=== PATIENT | male | born 1950 | race Caucasian/White ===

== ENCOUNTER 2024-12-02 13:48 | Inpatient (IN) | payer MEDICARE ==
[~2024-12-02] VITALS: Ht 172.7 cm; Wt 100.4 kg
[2024-12-02] MEDS ORDERED: HYDROmorphone HCl/Pf 1MG SYR IV ONE (15:10)
[2024-12-02] MEDS ORDERED: Ondansetron HCl 2 MG / ML 2ML Vial IV ONE (15:10)
[2024-12-02] MEDS ORDERED: HYDROmorphone HCl/Pf 1MG SYR IV PRN (16:40)
[2024-12-02] MEDS ORDERED: OxyCODONE HCL 5 MG TAB PO PRN (16:45)
[2024-12-02] MEDS ORDERED: Acetaminophen 325 MG TABLET PO PRN (16:45)
[2024-12-02] MEDS ORDERED: Ondansetron 4 MG SoluTab MM PRN (16:50)
[2024-12-02] MEDS ORDERED: HydrALAZINE HCl 20 MG / ML 1ML Vial IV PRN (17:05)
[2024-12-02 17:58] VITALS: BP 105/55
[2024-12-02] MEDS ORDERED: Losartan Potassium 50 MG Tab PO SCH (18:00)
[2024-12-02] MEDS ORDERED: VALS80 PO ×2 (18:07→18:10)
[2024-12-02] MEDS ORDERED: VALA500 PO (18:09)
[2024-12-02] MEDS ORDERED: FELODIPINE ER10 M1 PO (18:11)
[2024-12-02] MEDS ORDERED: CENTRUM SILVER1 EAC2 PO (18:12)
[2024-12-02] MEDS ORDERED: VALSARTAN-HCTZ1 EAC7 PO (18:15)
--- NOTE | 2024-12-02 18:41 | NUR ---
TRANSFER TO UNIT PATIENT TRANSFERRED TO UNIT AT APPROX 1745. PATIENT TRANSFERRED TO BED VIA SLIDER SHEET. ALERT AND ORIENTED X4. COMMUNICATES NEEDS EFFECTIVELY. VSS. SBP 100s. MAP >65. EVENING SCHEDULED COZAAR HELD. DENIES CHEST PAIN, PRESSURE. ON ROOM AIR, SATs >90%. L HIP FX - PPP, CAP REFILL <3 SECONDS. REPORTING 5/10 PAIN - MEDICATED PER EMAR. PLAN FOR SURGERY TOMORROW - NPO AT MIDNIGHT. MULTIPLE ABRASIONS TO L ARM - EXUDRY FOAM DRESSINGS AND KENNA WRAP APPLIED. HOME MEDICATIONS VERIFIED. PATIENT CURRENTLY EATING DINNER. CALL LIGHT IN REACH.
[2024-12-02 19:27] VITALS: BP 97/63
[2024-12-02] MEDS ORDERED: Sennosides 8.6 MG Tab PO SCH (21:00)
[2024-12-03] VITALS (15 sets, daily range): BP systolic 103–151; BP diastolic 46–78
--- NOTE | 2024-12-03 04:54 | NUR ---
SHIFT SUMMARY S/P L HIP FX. NO ACUTE CHANGES OVERNIGHT. VSS. NPO. DENIES N/V. LLE EXTERNALLY ROTATED. PT REFUSED REPOSITIONING R/T PAIN. PT REPORTS INCREASED PAIN c TOUCH/MOVEMENT. MEDICATED PER EMAR, LLE MINIMALLY ELEVATED. POLLOCK DRAINING STORM URINE TO GRAVITY. NPO IN ANTICIPATION OF SURGERY LATER TODAY. CALL LIGHTS IN REACH, BED IN LOWEST POSITION, WILL REPORT TO DAY RN.
[2024-12-03 05:29] LABS: BASOPHILS ABSOLUTE AUTO 0.03 K/mm3 (0.00-0.23); BASOPHILS PERCENT AUTO 0 % (0-2); EOSINOPHILS ABSOLUTE AUTO 0.01 K/mm3 (0.00-0.68); EOSINOPHILS PERCENT AUTO 0 % (0-6); Hematocrit 31.8 % (37.0-53.0); Hemoglobin 10.8 g/dL (13.5-17.5); IMMATURE GRAN ABSOLUTE AUTO 0.05 K/mm3 (0.00-0.10); IMMATURE GRAN PERCENT AUTO 1 % (0-1); LYMPHOCYTES ABSOLUTE AUTO 1.61 K/mm3 (0.84-5.20); LYMPHOCYTES PERCENT AUTO 15 % (21-46); MONOCYTES ABSOLUTE AUTO 1.64 K/mm3 (0.16-1.47); MONOCYTES PERCENT AUTO 15 % (4-13); Mean Corpuscular HGB 30.3 pg (26.0-34.0); Mean Corpuscular Volume 89 fL (80-100); Mean Platelet Volume 10.5 fL (9.1-12.4); NEUTROPHILS ABSOLUTE AUTO 7.71 K/mm3 (1.96-9.15); NEUTROPHILS PERCENT AUTO 70 % (41-73); Platelet Count 152 K/mm3 (150-400); RDW Coefficient Variation 13.6 % (11.7-14.2); RDW Standard Deviation 44.7 fL (35.1-46.3); Red Blood Cell Count 3.57 M/mm3 (4.30-5.90); White Blood Cell Count 11.05 K/mm3 (4.00-11.30)
[2024-12-03 06:05] LABS: Bun/Creatinine Ratio 25.9 (12.0-20.0); Calcium, Blood 8.4 mg/dL (8.5-10.1); Creatinine, Blood 1.39 mg/dL (0.60-1.20)
[2024-12-03] MEDS ORDERED: AmLODIPine Besylate 5 MG Tab PO SCH (09:00)
[2024-12-03] MEDS ORDERED: ValACYClovir HCL 500 MG Tab PO SCH (09:00)
[2024-12-03] MEDS ORDERED: Losartan Potassium 50 MG Tab PO SCH (09:00)
--- NOTE | 2024-12-03 10:14 | NUR ---
NOTE: DR. HEARN REQUESTED LAB RESULTS FROM PCP. THIS NURSE CALLED DR. KHAN OFFICE AND REQUESTED LABS TO BE FAXED TO THIS DEPARTMENT. THIS NURSE RECIEVED THE FAX AND NOTIFIED DR. HEARN OF THE RESULTS. NO NEW ORDERS FOR THIS NURSE AT THIS TIME.
[2024-12-03] MEDS ORDERED: C COMPLEX1000 M1 PO (11:13)
[2024-12-03] MEDS ORDERED: VALSARTAN160 MG PO (11:13)
--- NOTE | 2024-12-03 11:52 | NUR ---
NOTE: RECEIVED STAT EKG ORDER. EKG COMPLETED AND IN THE PT'S CHART.
[2024-12-03] MEDS ORDERED: Lactated Ringer's 1,000 ML IV SCH (12:10)
[2024-12-03] MEDS ORDERED: CeFAZolin Sodium 2,000 MG in NS 100 ML IV SCH (12:10)
[2024-12-03] MEDS ORDERED: Tranexamic Acid 100 ML IV SCH (12:15)
[2024-12-03] MEDS ORDERED: CeFAZolin Sodium 2,000 MG VIAL ONE (14:00)
--- NOTE | 2024-12-03 15:20 | NUR ---
PT HAS 18G TO RIGHT AC THAT FLUSHES WELL AND FLOWS TO GRAVITY. PT ALSO HAS 18G TO LEFT FOREARM THAT FLUSHES WELL.
--- NOTE | 2024-12-03 15:29 | NUR ---
PT BROUGHT FROM FLOOR TO DAY SURGERY FOR PROCEDURE W/DR SMITH. History, Chart, Medications and Allergies reviewed before start of procedure. Lungs clear T/O to Auscultation. Patient confirms NPO status and agrees with scheduled surgery. Pre-Op teaching done. Pt verbalizes understanding. PT BELONGINGS LEFT IN PERSONAL ROOM ON SURGICAL FLOOR. PT TOO PAINFUL FOR DEIRDRE HOSE/PAS WELL CHLORHEXADINE WIPE TO HIP, OR TEAM AWARE.
[2024-12-03] MEDS ORDERED: Bupivacaine 0.5% W/EPI 1:200000 SDV 30 ML Vial ONE (16:05)
--- NOTE | 2024-12-03 16:19 | NUR ---
REPORT GIVEN TO ESTUARDO GENAO RN AND DWAIN MARIE RN TO ASSUME CARE OF PT AT THIS TIME.
[2024-12-03] MEDS ORDERED: HYDROmorphone HCl/Pf 1MG SYR ONE (16:33)
[2024-12-03] MEDS ORDERED: Midazolam HCl 1MG / ML 2ML Vial ONE (16:33)
[2024-12-03] MEDS ORDERED: propofoL 20 ML IV ONE (16:33)
[2024-12-03] MEDS ORDERED: Rocuronium Bromide 10 MG/ML 5ML Injection IV ONE ×2 (16:34→17:49)
[2024-12-03] MEDS ORDERED: Lidocaine HCl 2% 20 ML MDV ONE (16:39)
[2024-12-03] MEDS ORDERED: Phenylephrine HCl 100 MCG/ML-NS 10MLSYR (1MG/10ML) ONE (17:05)
--- NOTE | 2024-12-03 18:29 | NUR ---
SHIFT SUMMARY PT AOX4, BR AT THIS TIME. LEFT FOR SURGERY TO THE L HIP AT 1509. HE HAS NOT RETURNED FROM SURGERY OF NOW. MAKES HIS NEEDS KNOWN. MEDICATED FOR PAIN PER THE EMAR. FAMILY AT THE BS. POLLOCK IN PLACE AND DRAINING. PT OFTEN REFUSED TO BE REPOSITIONED DUE TO THE HIGH LEVEL OF PAIN HE WOULD EXPERIENCE. CALL LIGHT WITHIN REACH, BED LOCKED AND IN THE LOWEST POSITION. WILL REPORT TO ONCOMING NURSE.
[2024-12-03] MEDS ORDERED: Glycopyrrolate 0.2 MG/ML 5ML VIAL ONE (19:24)
[2024-12-03] MEDS ORDERED: Neostigmine Methylsulfate 5MG/5ML SYR ONE (19:24)
[2024-12-03] MEDS ORDERED: FentaNYL Citrate 50 MCG/ML 2 ML Injection ONE (20:05)
[2024-12-03] MEDS ORDERED: FentaNYL Citrate 50 MCG/ML 2 ML Injection IV PRN (20:15)
[2024-12-03 20:17] LABS: Hematocrit 31.3 % (37.0-53.0); Hemoglobin 10.3 g/dL (13.5-17.5)
--- NOTE | 2024-12-03 20:35 | NUR ---
ARRIVAL TO UNIT PT ARRIVED TO UNIT FROM PACU VIA BED AGGITATED. PT THROWING OFF BLANKET WHILE BE WHEELED DOWN THE HALLWAY. PT YELLING OUT "LEAVE ME ALONE", "GO AWAY", "DON'T TOUCH ME", "STOP IT", "GET OUT." PT ATTMEPTING TO REMOVE IV AND GRABBING AT IV LINES. PT REMOVED BLOOD PRESSURE CUFF. PT ATTMEPTING TO GRAB AT POLLOCK & STAT LOCK ADHERED TO R LEG. PT UNRECEPTIVE TO AND REFUSING CARE. PT SWATTING AT THE AIR WHILE YELLING AT ALL PERSONEL IN ROOM TO LEAVE. TXA PER EMAR NOT INFUSED FULLY R/T PT AGGITATION. UNABLE TO OBTAIN VITAL SIGNS R/T PT REFUSAL. 2 BROTHERS AT PT BEDSIDE UNABLE TO CONSOLE & CALM PT. PT DOES NOT SHOW RECOGNITION OF FAMILY MEMBERS. PT UNWILLING TO ANSWER ORIENTATION QUESTIONS. DELFIN DRESSING TO OUTER L THIGH C/D/I c SCANT SANG DRAINAGE AT POSTERIOR EDGE OF DRESSING, DELFIN SUCTION FUNCTIONING c LIGHT BLINKING. AQUACEL DRESSING TO L OUTER KNEE C/D/I. POLLOCK DRAINING DARK YELLOW URINE TO GRAVITY. DEIRDRE HOSE IN PLACE, PT REFUSING SCD MACHINE. WHILE NETWORK TECHNOLOGY INSTRUCTOR ORIENTED PT TO UNIT & CALL LIGHT, PT STATES "DON'T YOU UNDERSTAND PORTUG[place]? GET OUT. LEAVE. I'LL DO IT MYSELF. YOU CAN'T DO ANYTHING TO ME IF I REFUSE." ALL PERSONNEL & FAMILY EXIT ROOM TO ALLOW PT CALM ENVIRONMENT. LIGHTS TURNED OUT. BED ALARM IN USE. THIS RN STANDING AT DOOR OF ROOM TO MONITOR PT WITHOUT FURTHER PROVOKING PT AGITATION.
[2024-12-03 21:12] LABS: Percent Saturation 13.9 % (20.0-50.0)
--- NOTE | 2024-12-03 22:11 | NUR ---
DR CONSULT 2149 ATTEMPT TO CONSULT HOSP R/T PT CONDITION AND FURTHER PLAN OF CARE. AWAITNG RETURN CALL. 2211 DR MADE AWARE OF PT REFUSAL OF CARE. DR ORDERED IM HALDOL & ATIVAN. DR STATES TO ATTEMPT NURSING INTERVENTIONS S/P MEDICATION ADMINISTRATION.
[2024-12-03] MEDS ORDERED: Haloperidol Lactate Inj. 5 MG/ML Injection IM ONE (22:15)
[2024-12-03] MEDS ORDERED: LORazepam 2 MG/ML 1ML Injection IM ONE (22:15)
--- NOTE | 2024-12-03 22:39 | NUR ---
MED ADMINISTRATION HALDOL & ATIVAN GIVEN PER EMAR. THIS RN & 4 OTHER STAFF MEMBERS TO BEDSIDE TO AID. EACH STAFF MEMBER HELD DOWN ONE PT EXTREMITY R/T COMBATIVE NATURE. PT KICKING OUT NON-SURGICAL LEG AND USING ARMS TO SWAT/GRAB AT STAFF. MED SUCCESSFULLY ADMINISTERED TO R OUTER THIGH. PT YELLING OUT DURING INTERACTION. PT STATES "YOU'RE FIRED FIRED FIRED. I DON'T WANT YOUR CARE. I WILL TAKE CARE OF MY SELF. I'M GOING TO [place] YOUR ASSESS." CONT BOIX PLACED ON PT L TOE. ATTEMPTED TO PLACE BP CUFF ON PT UPPER ARM, PT IMMEDIATELY REMOVED WHEN NO LONGER BEING HELD. VS PER CONT BIOX: O2 SAT 100% ON RA, HR 114. PT NOT RECEPTIVE TO EDUCATION/CARE. CALL LIGHT IN REACH, BED ALARM IN USE.
[2024-12-04 00:22] VITALS: BP 150/63
[2024-12-04 04:25] VITALS: BP 179/54
[2024-12-04 05:41] LABS: BASOPHILS ABSOLUTE AUTO 0.01 K/mm3 (0.00-0.23); BASOPHILS PERCENT AUTO 0 % (0-2); EOSINOPHILS PERCENT AUTO 0 % (0-6); Hematocrit 26.1 % (37.0-53.0); Hemoglobin 8.8 g/dL (13.5-17.5); IMMATURE GRAN ABSOLUTE AUTO 0.04 K/mm3 (0.00-0.10); IMMATURE GRAN PERCENT AUTO 0 % (0-1); LYMPHOCYTES ABSOLUTE AUTO 1.07 K/mm3 (0.84-5.20); LYMPHOCYTES PERCENT AUTO 9 % (21-46); MONOCYTES ABSOLUTE AUTO 1.55 K/mm3 (0.16-1.47); MONOCYTES PERCENT AUTO 13 % (4-13); Mean Corpuscular HGB 29.6 pg (26.0-34.0); Mean Corpuscular HGB Conc 33.7 g/dL (31.5-36.5); Mean Corpuscular Volume 88 fL (80-100); Mean Platelet Volume 10.2 fL (9.1-12.4); NEUTROPHILS ABSOLUTE AUTO 9.56 K/mm3 (1.96-9.15); NEUTROPHILS PERCENT AUTO 78 % (41-73); Platelet Count 144 K/mm3 (150-400); RDW Coefficient Variation 13.9 % (11.7-14.2); RDW Standard Deviation 44.7 fL (35.1-46.3); Red Blood Cell Count 2.97 M/mm3 (4.30-5.90); White Blood Cell Count 12.23 K/mm3 (4.00-11.30)
--- NOTE | 2024-12-04 06:03 | NUR ---
SHIFT SUMMARY POD 1 L HIP NAILING. VSS, PT TACHYCARDIC POST-OP IN LOW 100s PER CONT BI OX. PT TOLERATING MIN PO FLUIDS, DENIES N/V. POLLOCK DRAINING YELLOW URINE TO GRAVITY, STAT LOCK IN USE. AQUACEL TO L KNEE c SCANT SANG DRAINAGE. DELFIN DRESSING TO L HIP COMPRESSED c MIN SANG DRAINAGE ON DRESSING. ABD PADS TO L FA C/D/I. IV FLUIDS INFUSING. NO AMBULATION OVERNIGHT. BED ALARM IN USE. MENTATION: PT CONFUSION DECREASING THIS AM. PT ABLE TO RESPOND TO QUESTIONS APPROPRIATELY, SHORT RESPONSES. PT ABLE TO ENDORSE PAIN TO LLE. PT RELAYS THANKS c CARE. PT NOT FULLY ALERT AND ORIENTED TO BASELINE MENTATION. CALL LIGHT IN REACH, ANTICIPATED X-RAY TODAY, WILL REPORT TO DAY RN.
[2024-12-04 06:14] LABS: Bun/Creatinine Ratio 32.5 (12.0-20.0); Calcium, Blood 8.1 mg/dL (8.5-10.1); Creatinine, Blood 1.23 mg/dL (0.60-1.20); Potassium, Blood 4.5 mmol/L (3.5-5.5)
[2024-12-04 08:19] VITALS: BP 124/58
[2024-12-04] MEDS ORDERED: Losartan Potassium 50 MG Tab PO SCH (09:00)
[2024-12-04] MEDS ORDERED: AmLODIPine Besylate 5 MG Tab PO SCH (09:00)
[2024-12-04 11:49] VITALS: BP 125/60
[2024-12-04 14:49] VITALS: BP 136/71
[2024-12-04] MEDS ORDERED: Ferrous Gluconate 325 MG Tablet PO SCH (17:00)
[2024-12-04] MEDS ORDERED: Enoxaparin 40 MG/0.4 ML SYR SC SCH (17:00)
--- NOTE | 2024-12-04 18:06 | NUR ---
SHIFT SUMMARY PT A&OX4, VSS, TOLERATING PO, VOIDING, AND PAIN MANAGED PER EMAR. PT ATTEMPTED TO WORK W/ PHYSICAL THERAPY, BUT UNSUCCESSFUL. SEE THERAPY NOTE. PT REQUIRES LIFT AT THIS TIME. THIS RN CLEANED LUE SKIN TEARS W/ WOUND CLEANSER AND APPLIED EXU DRY AND KENNA WRAP. DELFIN AND AQUACEL DRESSING REMAIN IN PLACE W/ SCANT SANGUINEOUS DRAINAGE. NO OTHER ACUTE CHANGES. CALL LIGHT WITHIN REACH AND PT ABLE TO MAKE NEEDS KNOWN.
--- NOTE | 2024-12-04 18:23 | NUR ---
SHIFT SUMMARY PT A&OX4, VSS, TOLERATING PO, AND PAIN MANAGED PER EMAR. PT ATTEMPTED TO WORK W/ PHYSICAL THERAPY, BUT UNSUCCESSFUL. SEE THERAPY NOTE. PT REQUIRES LIFT AT THIS TIME. THIS RN CLEANED LUE SKIN TEARS W/ WOUND CLEANSER AND APPLIED EXU DRY AND KENNA WRAP. DELFIN AND AQUACEL DRESSING REMAIN IN PLACE Q/ SCANT SANGUINEOUS DRAINAGE. POLLOCK REMOVED AT 1450. NO POST VOID AT THIS TIME. PT EDUCATED ABOUT BLADDER SCAN WHEN HIS VISITORS LEAVE. NO OTHER ACUTE CHANGES. CALL LIGHT WITHIN REACH AND PT ABLE TO MAKE NEEDS KNOWN.
[2024-12-04 19:40] VITALS: BP 122/56
[2024-12-05 03:57] VITALS: BP 143/61
--- NOTE | 2024-12-05 04:16 | NUR ---
: REPORT FROM AUGUSTINE JOHNSON, ASSUMED CARE OF PATIENT. PATIENT HAD EYES CLOSED WHEN I WALKED IN. HE OPENED THEM I WAS WRITING MY NAME ON THE BOARD. I INTRODUCED MYSELF AND ASKED IH HE HAS BEEN ABLE TO PEE. HE SAID HE WAS TRYING AND HAD A URINAL UNDER THE COVERS. EDGE FINISHER DID BLADDER SCAN AND IT WAS A LITTLE OVER 200 ML. I RAN WATER FOR PT AND THEN TOLD HIM IF HE WANTS TO SIT AT THE SIDE OF THE BED WE CAN HELP HIM DO THAT. I TOLD HIM THE BEST THING TO DO IS DRINK MORE WATER. BEFORE MN PATIENT WAS ABLE TO VOID 475ML. DENIES NEED FOR PAIN MEDS. LT ARM WRAPPED, CDI. SL WITH NO IVF. LT HIP WITH DELFIN DRSG, COMPRESSED. REMAINS ASLEEP WITH RESPIRATIONS EVEN AND UNLABORED. BED IN LOWEST POSITION AND CALL LIGHT IN REACH.
[2024-12-05 07:15] VITALS: BP 129/60
--- NOTE | 2024-12-05 07:21 | NUR ---
SHIFT SUMMARY; NO ACUTE CHANGES FROM PREVIOUS NOTE WRITTEN . PATIENT REQUESTED PAIN MEDICATION WHEN HE WOKE AND I MEDICATED HIM WITH PO TYLENOL AND ROXICODONE PO. RATED LEFT HIP/ INCISIONAL PAIN 5/10. CALL LIGHT IN REACH AND BED IN LOWEST POSITION. KONRAD GIVE REPORT TO ONCOMING RN TAKING PT.
[2024-12-05 09:16] LABS: BASOPHILS ABSOLUTE AUTO 0.03 K/mm3 (0.00-0.23); BASOPHILS PERCENT AUTO 0 % (0-2); EOSINOPHILS ABSOLUTE AUTO 0.01 K/mm3 (0.00-0.68); EOSINOPHILS PERCENT AUTO 0 % (0-6); Hematocrit 20.8 % (37.0-53.0); IMMATURE GRAN ABSOLUTE AUTO 0.03 K/mm3 (0.00-0.10); IMMATURE GRAN PERCENT AUTO 0 % (0-1); LYMPHOCYTES ABSOLUTE AUTO 0.98 K/mm3 (0.84-5.20); LYMPHOCYTES PERCENT AUTO 11 % (21-46); MONOCYTES ABSOLUTE AUTO 1.06 K/mm3 (0.16-1.47); MONOCYTES PERCENT AUTO 12 % (4-13); Mean Corpuscular HGB 29.9 pg (26.0-34.0); Mean Corpuscular HGB Conc 33.7 g/dL (31.5-36.5); Mean Corpuscular Volume 89 fL (80-100); Mean Platelet Volume 10.1 fL (9.1-12.4); NEUTROPHILS ABSOLUTE AUTO 6.74 K/mm3 (1.96-9.15); NEUTROPHILS PERCENT AUTO 76 % (41-73); Platelet Count 112 K/mm3 (150-400); RDW Coefficient Variation 13.6 % (11.7-14.2); RDW Standard Deviation 44.3 fL (35.1-46.3); Red Blood Cell Count 2.34 M/mm3 (4.30-5.90); White Blood Cell Count 8.85 K/mm3 (4.00-11.30)
[2024-12-05 09:28] LABS: Bun/Creatinine Ratio 37.1 (12.0-20.0); Calcium, Blood 7.5 mg/dL (8.5-10.1); Creatinine, Blood 1.05 mg/dL (0.60-1.20); Potassium, Blood 3.8 mmol/L (3.5-5.5)
[2024-12-05 14:49] VITALS: BP 138/70
--- NOTE | 2024-12-05 18:27 | NUR ---
SHIFT SUMMARY POD 2. L HIP PINNING. DELFIN DRESSING CLEAN AND DRY, NOT COMPRESSED NOTIFIED. A&O X4. PT URINATING USING URINAL. PT USING BEDSIDE COMMODE WITH 2 PERSON STAND AND PIVOT. BM TODAY 12/05/24. PT TOLERATING DIET. DENIES N&V. PAIN MANAGED PER EMAR. PLAN IS TO DISCHARGE TO SNF. MAKES NEEDS KNOWN. CALL LIGHT WITHIN REACH.
[2024-12-05 19:26] VITALS: BP 147/62
[2024-12-06] VITALS (9 sets, daily range): BP systolic 139–167; BP diastolic 60–81
--- NOTE | 2024-12-06 04:45 | NUR ---
SHIFT SUMMARY BILL WAS ALERT AND FULLY ORIENTED ON ASSESSMENT. DRESSING TO LLE C/D/I, CIRCULATION AND SENSATION INTACT DISTALLY. PT DENIES SOB CHEST P/PRESSURE. PT PAIN MODERATELY WELL CONTROLLED TONIGHT. NO ACUTE EVENTS OR NOTED CHANGES TO CONDITION.
[2024-12-06 05:42] LABS: Hematocrit 18.9 % (37.0-53.0); Hemoglobin 6.3 g/dL (13.5-17.5); Mean Corpuscular HGB 29.7 pg (26.0-34.0); Mean Corpuscular HGB Conc 33.3 g/dL (31.5-36.5); Mean Corpuscular Volume 89 fL (80-100); Mean Platelet Volume 10.3 fL (9.1-12.4); Platelet Count 120 K/mm3 (150-400); RDW Coefficient Variation 13.4 % (11.7-14.2); Red Blood Cell Count 2.12 M/mm3 (4.30-5.90); White Blood Cell Count 6.72 K/mm3 (4.00-11.30)
[2024-12-06] MEDS ORDERED: NS 500 ML IV ONE (08:39)
[2024-12-06] MEDS ORDERED: NS 500 ML IV SCH (09:35)
--- NOTE | 2024-12-06 10:08 | NUR ---
[facility] INFUSING, TO HAVE H&H DRAWN ONE HOUR AFTER INFUSION COMPLETE PER DR WINSTON, REPORT TO DONNIE, CALL LIGHT WITH IN REACH
[2024-12-06 14:10] LABS: Hematocrit 22.5 % (37.0-53.0); Hemoglobin 7.6 g/dL (13.5-17.5)
[2024-12-06] MEDS ORDERED: OxyCODONE HCL 5 MG TAB PO ONE (17:45)
--- NOTE | 2024-12-06 18:19 | NUR ---
ASSUMED CARE OF PT IN MIDDLE OF BLOOD TRANSFUSION, PT SHIRA INFUSION WELL NO S/S OF TRANFUSION REACTION, PAIN TO LEFT HIP IS MINIMAL AT THIS POINT WHEN STILL BUT PT STATED HE WOULD ATTEMPT TO SIT UP IF POSSIBLE BY HIMSELF. CALL LIGHT WITHIN REACH. PT WAS NOT ABLE TO SIT UP ON OWN. BLOOD FINISHED AT 1130, LAB DRAW DONE AT 1330 PT WAS ASSITED OUT OF BED NEEDING MAX ASSIST, WAS ABLE TO USE WALKER ONCE UP AND TRANSFER TO [facility], LARGE BM WAS HAD. ADDITIONAL DOSE OF MEDICATION WAS GIVEN FOR PAIN, FAMILY AND FRIENDS AT BEDSIDE
[2024-12-07 04:12] VITALS: BP 138/74
--- NOTE | 2024-12-07 04:24 | NUR ---
SHIFT SUMMARY GEETHA WAS ALERT AND FULLY ORIENTED ON ASSESSMENT. PT MORE PAINFUL TONIGHT THAN PREVIOUS NOC. AQUACEL DRESSING TO L THIGH WAS SATURATED AT START OF SHIFT. DRESSING CHANGED. SENSATION AND CIRCULATION INTACT TO FEET. PT THIGH NOTED TO BE SOMEWHAT TIGHT AND SWOLLEN. HE STATES THAT HE THINK IT HAS BEEN LIKE THAT FOR AT LEAST A DAY. NO ACUTE EVENTS TONIGHT.
[2024-12-07 06:14] LABS: Hematocrit 22.2 % (37.0-53.0); Hemoglobin 7.4 g/dL (13.5-17.5); Mean Corpuscular HGB 30.2 pg (26.0-34.0); Mean Corpuscular HGB Conc 33.3 g/dL (31.5-36.5); Mean Corpuscular Volume 91 fL (80-100); Mean Platelet Volume 9.7 fL (9.1-12.4); Platelet Count 151 K/mm3 (150-400); RDW Coefficient Variation 13.2 % (11.7-14.2); RDW Standard Deviation 43.7 fL (35.1-46.3); Red Blood Cell Count 2.45 M/mm3 (4.30-5.90); White Blood Cell Count 6.44 K/mm3 (4.00-11.30)
[2024-12-07 06:44] LABS: Bun/Creatinine Ratio 25.1 (12.0-20.0); Calcium, Blood 8.1 mg/dL (8.5-10.1); Creatinine, Blood 0.76 mg/dL (0.60-1.20); Potassium, Blood 4.1 mmol/L (3.5-5.5)
[2024-12-07 08:11] VITALS: BP 162/71
--- NOTE | 2024-12-07 08:30 | NUR ---
Pt asking first thing this am to sit up on the side of the bed to look out the window, when staff went in to get him sat up and breakfast he decided he needs to sleep and would not get up, but did allow this nurse to give him his medications and do assessment, medicated for pain, repositioned him, his lungs are clear in upper [place], dim in bases, resp even and unlabored, no cough noted, on r/a, hrr, tele in place running sr per monitor, see strip, no edema noted, ppp faint, cap refill <3 sec, vs stable, afebrile, piv site is clear and patent, btx4, abd flat soft nontender, voids without diff, skin c/w/d, left leg is stiff, he is difficult to move, aneesh, call light in reach.
[2024-12-07] MEDS ORDERED: Iron Polysaccharides Complex 150 MG Cap PO SCH (09:00)
[2024-12-07 16:29] VITALS: BP 156/78
--- NOTE | 2024-12-07 18:46 | NUR ---
pt dressing to left hip is saturated, this was removed, dried skin and replaced dressing, medicated several times for pain, lots of family in to visit, did not want to get oob today, and is difficult to turn due to pain, call roxana tierney.
[2024-12-07 19:34] VITALS: BP 152/79
[2024-12-08 04:04] VITALS: BP 147/72
--- NOTE | 2024-12-08 04:28 | NUR ---
HOUSING COUNSELOR SUMMARY PT AAOX4 AND PLEASANT. PAIN HAS BEEN CONTROLLED WITH PRN OXYCODONE HOWEVER PT IS STILL QUITE PAINFUL WITH REPOSITIONING. L HIP DRESSINGS MOSTLY C/D/I ASIDE FROM SMALL AREA OF SHADOWING TO DISTAL SMALLER DRESSING. 1+ EDEMA NOTED TO LLE. PT HAS NOT WANTED TO ATTEMPT ANY AMBULATION TONIGHT. VSS, WILL CONTINUE TO MONITOR.
[2024-12-08 06:55] LABS: Hematocrit 22.3 % (37.0-53.0); Hemoglobin 7.4 g/dL (13.5-17.5); Mean Corpuscular HGB 30.1 pg (26.0-34.0); Mean Corpuscular HGB Conc 33.2 g/dL (31.5-36.5); Mean Corpuscular Volume 91 fL (80-100); Mean Platelet Volume 9.6 fL (9.1-12.4); Platelet Count 179 K/mm3 (150-400); RDW Coefficient Variation 13.2 % (11.7-14.2); RDW Standard Deviation 44.1 fL (35.1-46.3); Red Blood Cell Count 2.46 M/mm3 (4.30-5.90); White Blood Cell Count 6.34 K/mm3 (4.00-11.30)
[2024-12-08 07:06] VITALS: BP 132/71
--- NOTE | 2024-12-08 14:11 | NUR ---
REPORT TO [facility] NURSE. ALL QUESTIONS ANSWERED.
== END 2024-12-08 15:32 | DRG 481 ==
LOC: ER 13:48 → SURS 16:40
PROVIDERS: Internal Medicine; Orthopaedic Surgery; ADMIT Internal Medicine
PROC: 0QS704Z Reposition Left Upper Femur with Internal Fixation Device, Open Approach (ICD-10-PCS; principal; 2024-12-03 15:30)
PROC: 30233N1 Transfusion of Nonautologous Red Blood Cells into Peripheral Vein, Percutaneous Approach (ICD-10-PCS; 2024-12-06)
DX: S72.142A Displaced intertrochanteric fracture of left femur, initial encounter for closed fracture (principal); D62 Acute posthemorrhagic anemia; N17.9 Acute kidney failure, unspecified; N18.30 Chronic kidney disease, stage 3 unspecified; I12.9 Hypertensive chronic kidney disease with stage 1 through stage 4 chronic kidney disease, or unspecified chronic kidney disease; D63.1 Anemia in chronic kidney disease; V86.59XA Driver of other special all-terrain or other off-road motor vehicle injured in nontraffic accident, initial encounter; S00.412A Abrasion of left ear, initial encounter; S40.812A Abrasion of left upper arm, initial encounter; S50.812A Abrasion of left forearm, initial encounter; S72.22XA Displaced subtrochanteric fracture of left femur, initial encounter for closed fracture
CPT/HCPCS: 36415; 36430; 51702; 72170; 73552; 80048; 82607; 82728; 82746; 83540; 83550; 85014; 85018; 85025; 85027; 86850; 86900; 86901; 86923; 93005; 93010; 94762; 96374-59; 96375-59; 97110; 97161; 97530; 97530-CQ; 99285-25; A9270; C1713; C1769; J0690; J1171; J1630; J1650; J2060; J2250; J2371; J2405; J2704; J2710; J3010; J7040; J7120; P9016